=== PATIENT | male | born 2000 | race Caucasian/White ===

== ENCOUNTER 2022-02-02 19:01 | Emergency (ER) | payer BC ==
[~2022-02-02] VITALS: Ht 188 cm; Wt 97.7 kg
[2022-02-02 19:09] VITALS: TEMP 99.1
[2022-02-02 20:14] VITALS: BP 133/75; PULSE 74
== END 2022-02-02 20:21 | disposition home or self-care (01) ==
LOC: COL.ER 19:01
DX: S43.402A Unspecified sprain of left shoulder joint, initial encounter (principal); X58.XXXA Exposure to other specified factors, initial encounter; Y92.318 Other athletic court as the place of occurrence of the external cause; Y93.68 Activity, volleyball (beach) (court)